=== PATIENT | female | born 1995 | race Caucasian/White ===

== ENCOUNTER 2018-09-10 19:07 | Observation (INO) | payer BC ==
[~2018-09-10] VITALS: Ht 152.4 cm; Wt 70.7 kg
--- NOTE | 2018-09-10 19:15 | NUR ---
Patient arrived to floor from [facility] via POV transfer. Patient is alert and oriented, answers questions appropriately, but often defers to her mother, who is at bedside. Patient appears to be very anxious, but states pain and nausea are well controlled at this time. Informed patient that oncall surgeon will be in to see her, and that we will need to get an IV started since they were unable to obtain one at [facility]. Patient immediately became very agitated and upset; patient's mother states that she has a history of difficult IV access. Called visiting housekeeper to request assistance with IV placement.
[2018-09-10 19:44] VITALS: BP 126/65; PULSE 91; TEMP 98.2
[2018-09-10 20:00] VITALS: BP 126/65; PULSE 91; TEMP 98.2
--- NOTE | 2018-09-10 22:00 | NUR ---
Anesthesia arrived to place IV with ultrasound assistance. IV access achieved in right IJ. Patient tolerated procedure with a considerable amount of anxiety, and now c/o nausea, will administer PRN nausea meds. Anesthesia instructs that when IV access is discontinued, the site will need pressure applied as if it were a central line removal, will pass this to oncoming shift.
[2018-09-11 04:42] VITALS: BP 108/58; PULSE 79; TEMP 98.6
--- NOTE | 2018-09-11 05:42 | NUR ---
Patient requested PRN pain medication once overnight. Patient otherwise rested well during the night, no further complaints of pain and no episodes of abdominal pain. Patient has remained NPO since midnight. Denies further needs at this time, call light within reach.
[2018-09-11 05:57] LABS: BASO # 0.1 (0.0-0.2); BASO % 0.2 % (0.0-2.0); EOS # 0.1 (0.0-0.7); EOS % 0.5 % (0-4.0); GRAN # 18.7 (1.4-6.5); GRAN % 77.4 % (42.2-75.2); HEMOGLOBIN 11.4 g/dl (12.5-16.0); LYMPH # 3.7 (1.2-3.4); LYMPH % 15.2 % (20.0-51.0); MEAN CELL VOLUME 84 fl (80.0-100.0); MEAN CORPUSCULAR HEMOGLOBIN 28 pg (27.0-31.0); MEAN CORPUSCULAR HGB CONC 33 g/dl (33.0-37.0); MEAN PLATELET VOLUME 10.3 fl (7.4-10.4); MONO # 1.5 (0.1-0.6); MONO % 6.1 % (1.7-9.3); PLATELET COUNT 280 K/mm3 (130-400); RED BLOOD COUNT 4.12 M/mm3 (4.10-5.30); REDCELL DISTRIBUTION WIDTH-CV 14.4 % (11.5-14.5)
[2018-09-11 06:11] LABS: HEMATOCRIT 34.5 % (37.0-47.0)
[2018-09-11 06:24] LABS: CALCIUM 8.8 mg/dL (8.4-10.2); CREATININE, serum 0.59 mg/dL (0.52-1.25); POTASSIUM 3.5 mmol/L (3.4-5.0)
[2018-09-11 08:00] VITALS: BP 119/58; PULSE 83; TEMP 98.4
--- NOTE | 2018-09-11 08:00 | NUR ---
PATIENT IS DROWSY AND RESTING IN BED THIS MORNING. PATIENT AROUSES EASILY TO NAME. MOTHER PRESENT AT THE BEDSIDE. PATIENT IS A&O. VSS. BOWEL SOUNDS ACTIVE ALL FOUR QUADRANTS. PATIENT TOLERATING CLEAR LIQUIDS AND DENIES COMPLAINTS OF N/V. POSITIVE PEDAL PULSES EQUAL BILATERALLY. IV FLUIDS INFUSING TO PERIPHERAL LINE IN THE PATIENT'S RIGHT IJ VIA PUMP. CALL LIGHT WITHIN REACH. PATIENT DENIES ANY NEEDS AT THIS TIME.
--- NOTE | 2018-09-11 11:30 | NUR ---
PATIENT'S DIET ADVANCED FROM CLEAR LIQUIDS TO FULL LIQUIDS. WILL CONTINUE TO MONITOR.
[2018-09-11 12:56] VITALS: BP 121/71; PULSE 79; TEMP 98.1
--- NOTE | 2018-09-11 13:00 | NUR ---
PATIENT TOLERATING FULL LIQUIDS WITHOUT ANY COMPLAINTS OF N/V.
--- NOTE | 2018-09-11 13:17 | NUR ---
VERONICA met with the patient to discuss a discharge plan. The patient lives alone in [place]. The patient reports independence with ADLs and does not use any DME. The patient's PCP is Dr. Varinder Nixon and the patient receives her medications from [facility] in [place]. The patient does not have advanced directives in the EMR, but was interested in obtaining a DPOA-HC form. VERONICA provided the form to the patient. Upon discharge the patient will return home. There are no additional needs at this time.
--- NOTE | 2018-09-11 13:37 | NUR ---
PATIENT'S RIGHT IJ IV DISCONTINUED PER PENDING DISCHARGE. PRESSURE APPLIED TO RIGHT IJ SITE FOR 10 MINUTES. GAUZE & TEGADERM DRESSING APPLIED. PATIENT TOLERATED WELL.
--- NOTE | 2018-09-11 14:10 | NUR ---
DISCHARGE INSTRUCTIONS REVIEWED WITH PATIENT AND MOTHER. ALL QUESTIONS ANSWERED. PATIENT PERSONAL BELONGINGS GATHERED. PATIENT TAKEN TO PERSONAL VEHICLE VIA WHEELCHAIR BY SURGICAL STAFF. PATIENT DISCHARGED.
== END 2018-09-11 14:10 | disposition home or self-care (01) ==
LOC: SURG 19:07
PROVIDERS: ADMIT Surgery
DX: R10.30 Lower abdominal pain, unspecified (principal); D72.829 Elevated white blood cell count, unspecified; Z86.718 Personal history of other venous thrombosis and embolism
CPT/HCPCS: G0378; G0379; J1170; J2405; J7042